=== PATIENT | female | born 1935 | race Caucasian/White ===

== ENCOUNTER 2019-03-09 06:00 | Outpatient (RCR) | payer MEDICARE, OTHER, SELFPAY ==
--- NOTE | 2019-03-13 07:05 | ONC FU_ITS ---
Dr. Bonds Patient Follow-Up Note Patient: OSBALDO MENDEZ Unit #: [id number]: [id number] Dicatated By: David Bonds M.D.Date of Visit:Mar 09, 2019 Onc Med Follow-up/Prog Note Chief Complaint: Lung cancer. History of Present Illness: This is an 83 year-old woman with recurrent nonsmall cell lung cancer. In October 2010 she was found on chest CT to have a right middle lobe soft tissue density which had increased from previous studies and was felt to be suspicious. She underwent thoracotomy/biopsy of the right upper lobe nodule in November 2010 and pathology was benign. However, during subsequent followup she was found to have a nonsmall cell cancer of the left lung for which she underwent left lower lobectomy in August 2011. 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 It measured 1.3 x 0.9 x 0.5 cm. There was no involvement in 2 peribronchial lymph nodes. Since then she has had surveillance CT scans every 3 months. The most recent study, from 01/22/2013, showed further consolidation in the inferior aspect of the left lung along with small loculated pleural effusion, presumably just postoperative changes. There was a new area of consolidation noted in the subpleural area laterally in the superior aspect of the right lower lobe. The appearance was suspicious for malignancy. A repeat PET/CT from 03/02/2013 showed a 3 x 1 cm area of pleural thickening in the mid aspect of the lateral right pleura with an SUV of 6.3 which was new from the prior study. There were multiple areas of pleural thickening along the medial left pleura which were intensely hypermetabolic with SUVs in the range of 10.3. There was an additional 1.8 cm hypermetabolic mass in the superior left hilum with SUV 10.5. There was associated post obstructive pneumonitis in the inferior lingula. A 2 cm subcarinal lymph node has an SUV of 5.0. The findings were consistent with recurrent tumor in the left hilar region with associated metastatic involvement in the pleural spaces bilaterally. The findings were previously discussed with the patient and her family. We had initially hoped that he involvement was going to be limited to the tumor in the right lung and potentially treatable with CyberKnife. Her disease was obviously much more extensive than we had anticipated. I did have her see Dr. Cardenas to discuss the possibility of palliative radiation, as it did appear that she would be at risk for obstruction/atelectasis from the tumor in the left hilum. Ultimately, it was felt that the disease elsewhere was too extensive to justify that treatment. After further discussion with the patient and her family, we opted to avoid the potential side effects of chemotherapy and just limit her further treatment to symptomatic/supportive care with hospice. As of my visit with her in November 2013, her condition had declined just gradually and subsequent to that visit, she actually was taken off hospice. However, in January 2014 she was admitted to the hospital with increasing weakness. Chest CT at that time did show evidence of disease progression with complete consolidation of the remaining left lung with associated postobstructive atelectasis or pneumonia. There also was a new consolidation in the right lower lobe. She also became significantly anemic, with hemoglobin dropping to 7.7 g. She did receive a transfusion of 2 units of packed red blood cells. She was discharged to the intermediate on antibiotic coverage with Levaquin and clindamycin. Her condition then improved and she was able to return home with hospice. During subsequent followup her condition stabilized, in July 2014 she was taken off hospice again. She then continued symptomatic/supportive care. During subsequent follow-up, she did show gradual improvement. As of her follow-up visit in 09/22/2015, she appeared to have been pretty well stable, and she was again taken off hospice. At her follow-up visit on 07/06/2017 she was found to be significantly anemic, hemoglobin 8.8 g. The transferrin saturation and ferritin were consistent with iron deficiency. She returned on 07/11/2017 for an infusion of Injectafer. She tolerated it well initially, but at the completion of the infusion she became very anxious and week. She was placed in the hospital for observation. She ended up being transfused. On her followup visit on 08/16/2017 she was still mildly anemic, but she was feeling better. She continued on symptomatic/supporitve care. On 02/13/2018 she was admitted to the hospital after presenting to the emergency room with abdominal pain. Ultrasound showed evidence of stone in the neck of the gallbladder with mild common bile duct dilatation. MRI of the abdomen showed findings compatible with obstructing choledocholithiasis. She was then transferred to [facility] in [place] where she then underwent extraction of the bile duct stone followed by cholecystectomy. She had no complications with the surgery, and she subsequently was able to be discharged home. As of her follow-up visit on 05/03/2018 she continued to have fairly marginal performance status, but she appeared stable clinically, and she continued on observation/symptomatic management. On 07/11/2018 she was admitted to the hospital after presenting to the emergency room with increased shortness of breath. Her CT pulmonary angiogram showed abrupt cutoff of the left main pulmonary artery with thrombus in the left distal main pulmonary artery extending into the left upper lobe segmental and subsegmental branches, consistent with embolus. There was stable parenchymal fibrosis and pleural thickening throughout the right lung. There were stable postoperative changes of left lower lobectomy and stable bullous emphysematous changes in the left upper lobe. At that time she also had evidence of chronic respiratory failure with her ABG showing elevated PCO2 at 64.5. She was discharged home on anticoagulation with apixaban. Repeat brain MRI on 07/14/2018 showed no evidence of metastatic disease. There were remote infarcts in the right frontal and left temporal and parietal lobes and there was a subacute infarct noted in the right frontal lobe. On 09/14/2018 she was seen in the emergency room again, this time with shortness of breath and abdominal pain. Her ABGs continued to show elevated PCO2. There were no acute findings on chest x-ray. I had seen her for a scheduled visit on 10/11/2018. At that point she was continuing to show decline in performance status, and she also was experiencing some decline in her cognitive function. She has additional history of hypertension and coronary artery disease. She underwent coronary artery bypass surgery in 2006. She suffered a hemorrhagic stroke while on anticoagulation in 2009. She had smoked in the past, but she quit in 2009. She has had some chronic bronchitis following the pneumonia in January 2014. INTERIM HISTORY: On 12/22/2018 she was observed overnight in the hospital after presenting to the emergency room with syncope. She also reported increased weakness/fatigue and somnolence. Her chest CT showed stable findings including parenchymal fibrosis and pleural thickening on the right and postoperative changes of left lower lobectomy and stable bullous emphysematous changes in the left upper lobe. There was also stable appearance of abrupt cut off of the left main pulmonary artery with chronic filling defect in the left distal main pulmonary artery extending into the left upper lobe segmental and subsegmental branches. Following discharge she continued to function poorly, and on 01/18/2019 she was admitted to [facility] where she has continued symptomatic management on hospice. She is seen for a follow-up visit in the intermediate. She has been feeling better generally. She still has limited activity and she says she does a lot of sleeping, but she is not as fatigued as she had been at home. She has able to get around reasonably well. Her appetite has been pretty good. She has no fever or night sweats. Her breathing has been okay with the oxygen and breathing treatments. She has not had much cough, and she does not complain of chest pain. She has no GI or complaints. She has no significant joint or bone pain. She does not complain of headache or dizziness, and she has no focal neurologic symptoms. She does have anxiety, but it is managed adequately with medication. Medications: Albuterol Sulfate 1 ((2.5 mg/3ml) 0.083%) Nebulization solution Inhalation q 4 hours PRN, Eliquis 1 (2.5 mg) Tablet Oral b.i.d., Levothyroxine Sodium 1 (75 mcg) Tablet Oral daily, LORazepam 2 mg/mLOral Concentrate (0.5 -1mL) q 4 to 6 hours PRN, Pantoprazole Sodium 1 Tablet (of 20 mg) Tablet, enteric coated Oral daily, PARoxetine HCl ER 1 Tablet (of 12.5 mg) Tablet SR 24 HR Oral daily, Sotalol HCl 1 Tablet (of 80 mg) Oral b.i.d., Stool Softener 1 Capsule (of 100 mg) Oral daily Allergies: No Known Allergies. Review of Systems: Constitutional - She has very limited activity. She says she sleeps a lot. Appetite has been good. No fever, chills, hot flashes, or night sweats. ECOG score is 3, ENMT - She occasionally has sinus drainage. No mouth sores. No sore throat or difficulty swallowing, Hematologic/Lymphatic - She has some bruising. No other bleeding, Respiratory - She has shortness of breath. She is on continuous oxygen. No cough. No pleuritic pain or hemoptysis, Cardiovascular - No angina pain. No palpitations, Gastrointestinal - No nausea or vomiting. No heartburn or acid reflux. No diarrhea or constipation. No blood in the stool or black stools, Genitourinary (F) - No dysuria or hematuria. No urinary frequency. No urgency or incontinence, Musculoskeletal - No joint or bone pain, Integumentary - No skin rash or other slin problems, Neurologic - No headache or dizziness. She has numbness/tingling in extremities, Psychiatric - She has anxiety. No insomnia. Vital Signs: Her recent vital signs include blood pressure 110/64, pulse 76, respirations 16, temp 96.9 degrees, and oxygen saturation 99%. Physical Examination: Constitutional - She appears generally weak, but overall better since her last visit in the office, Eyes - Sclerae nonicteric. Conjunctivae clear, ENMT - No lesions noted in the oral cavity, Hematologic/Lymphatic - No cervical, clavicular, or axillary adenopathy, Respiratory - Breath sounds are virtually absent on the left. She has pretty good air movement on the right, and the right lung sounds clear, Cardiovascular - Heart rhythm is irregular. There is a I/ systolic murmur. There is no gallop or rub noted, Abdomen - Soft. Liver and spleen are not enlarged. There is no abdominal mass or ascites noted and there is no inguinal adenopathy, Extremities - No edema, Neurologic - She does not appear to have any focal neurologic deficit. Impression: 1. Patient with recurrent/metastatic nonsmall cell lung cancer. By staging PET/CT in February 2013 there was involvement in both lungs/pleura, but there was no obvious metastatic disease outside the chest. After discussion with the patient and her family, it was opted to just continue symptomatic/supportive care. 2. Her condition had declined very gradually. However, in January 2014 she experienced a more significant decline in her condition with chest CT at that point showing complete consolidation in the left lung and new consolidation in the right lung. Some of that was likely related to pneumonia, though she also did appear to have some disease progression. She did show some recovery with hydration and antibiotic therapy, and she subsequently continued symptomatic/supportive care. 3. During subsequent follow-up, her condition stabilized. As of her follow-up visit on 09/22/2015, she was taken off hospice again. Her other medical illnesses include: 4. Hypertension. 5. Hyperlipidemia. 6. Coronary artery disease with previous bypass surgery. 7. She also has a history of previous stroke. 8. She has had some chronic bronchitis following a hospital admission for pneumonia in January 2014. During followup she continued to have fairly marginal performance status, and she continued to show some decline, but it was very gradual. On 07/06/2017 she was found to be significantly anemic and her transferrin saturation and ferritin were consistent with iron deficiency. On 07/11/2017 she returned for an infusion of Injectafer. She became very anxious and weak at the completion of the infusion, and she did end up in the hospital where she was given a transfusion of PRBC. On a follow-up visit in August 2017 she was still moderately anemic, but she was feeling better. In September 2017 she presented with productive cough and hemoptysis. A repeat chest CT showed significant volume loss throughout the left thorax with increased pleural thickening, but no discrete enhancing mass. There was stable emphysema and scarring throughout the right lung. There was no acute infiltrate. She initially showed some improvement on antibiotic therapy, but for the past month she has continued to have cough productive of dark sputum with intermittent hemoptysis. She eventually did improve on treatment with Levaquin and prednisone. Her repeat CT scans in January 2018 showed no obvious disease progression. On 02/13/2018 she was admitted to the hospital with abdominal pain. MRI of the abdomen showed findings compatible with obstructing choledocholithiasis. She was then transferred to [facility] in [place] where she underwent extraction of the bile duct stone followed by cholecystectomy. She had an uneventful recovery from the surgery. As of her follow-up visit in April 2018 her overall clinical status appeared stable with no obvious progression of the lung cancer. In July 2018 she was admitted to the hospital with an episode of major pulmonary embolism involving the left main pulmonary artery. At that time she also had evidence of chronic respiratory failure with significantly elevated PCO2. She has been on anticoagulation with apixaban. She continues to show further decline in her performance status. At least some component that is almost certainly related to her chronic respiratory failure. She also has been showing decline in her cognitive function. Her repeat head MRI in July did not show any evidence of metastatic involvement. During subsequent follow-up there was further decline in her performance status, and she also was experiencing some decline in her cognitive function. Her repeat CT scans on 12/22/2018 showed no obvious progression of the lung cancer. But with further decline in her general condition, she was admitted to the intermediate in January, and she has since then continued on symptomatic management with hospice. Overall, she appears to be doing much better in the intermediate environment. Plan: She continues symptomatic/supportive care. I will to see her again as needed. Signed By: David Bnods M.D. <<Signature on File>>
== END 2019-04-06 23:59 | disposition home or self-care (01) ==
LOC: ONCMED 06:00
PROVIDERS: Family Provider Family Medicine; Visit Provider Internal Medicine Medical Oncology
DX: Z51.5 Encounter for palliative care (principal); C34.32 Malignant neoplasm of lower lobe, left bronchus or lung; D50.9 Iron deficiency anemia, unspecified; J96.10 Chronic respiratory failure, unspecified whether with hypoxia or hypercapnia; I10 Essential (primary) hypertension; I25.10 Atherosclerotic heart disease of native coronary artery without angina pectoris; E78.5 Hyperlipidemia, unspecified; Z79.51 Long term (current) use of inhaled steroids; Z95.1 Presence of aortocoronary bypass graft; Z86.711 Personal history of pulmonary embolism; Z86.73 Personal history of transient ischemic attack (TIA), and cerebral infarction without residual deficits; Z87.891 Personal history of nicotine dependence; Z87.01 Personal history of pneumonia (recurrent)
CPT/HCPCS: 99308